=== PATIENT | male | born 1995 | race Two or more races ===

== ENCOUNTER 2017-11-03 16:56 | Emergency (ER) | payer MEDICAID ==
--- NOTE | 2017-11-03 17:39 | ED Physician Chart ---
ED Chief Complaint/HPI - Patient Information Date Seen:: 11/03/17 Time Seen:: 17:37 Chief Complaint:: Left wrist pain History of Present Illness:: 22 yo male had left wrist pain after fall from skate boarding, landed on his left elbow and wrist 2 days ago. Today, the pain became worse with limited and painful ROM. Allergies:: Allergies Allergy/AdvReac Type Severity Reaction Status Date / Time No Known Allergies Allergy Verified 07/31/16 21:47 ED Review of Systems - Review of Systems General/Constitutional: No fever, No chills Skin: No skin lesions Head: No headache Eyes: No pain ENT: No earache Neck: No neck pain Cardio Vascular: No chest pain Pulmonary: No SOB GI: No nausea, No vomiting Musculoskeletal: Bone or joint pain Psychiatric: No prior psych history Neurological: No focal symptoms ED Past Medical History - Past Medical History Past Medical History: No significant medical hx Social History: Smoker, Alcohol, Illicit Drug Use (marijuana) Surgical History: None Family Medical History - Family Member Mother History Unknown: Yes ED Physical Exam - Physical Examination General/Constitutional: Awake, Alert Head: Atraumatic Eyes: PERRL Skin: No skin lesions ENMT: Nasal exam nl Neck: No nuchal rigidity Respiratory: Clear to Auscultation Cardio Vascular: RRR, No murmur, gallop, rubs, NL S1 S2 GI: No tenderness/rebounding/guarding Other Extremities comments:: Left wrist swelling, tenderness, limited and painful ROM Neuro/Psych: No focal deficits ED Labs/Radiology/EKG Results - Radiology Results Results: left wrist X ray: possible nondisplaced fracture at distal radial metaphyseal region ED Assessment - Assessment General Assessment: Left wrist fracture Assessment/Comments:: Left wrist splint applied D/c instructions for splint care Follow up with PCP for ortho referral Splint Care: Splint applied (Left wrist splint) Post Procedure/Splint Exam: No Active Bleeding, Full Range of Motion (full ROM of all left 5 fingers), Neuro/Vascular Exam (goog blood refill on all finger tips) ED Septic Shock - . Is Septic Shock (SBP<90, OR Lactate>4 mmol\L) present?: No ED Reassessment (Disposition) - Reassessment Reassessment Condition:: Improved - Patient Disposition Discharge/Transfer:: Home ED Discharge Plan - Patient Disposition Admit/Discharge/Transfer: PT DISCHARGED HOME Condition at Disposition: Stable Instructions: Wrist Fracture, [id number]
--- NOTE | 2017-11-04 08:26 | Diagnostic Imaging Report ---
Left wrist 3 views Indication: Fall Comparison: none Findings: There is slight irregularity of the radial metaphyseal region along the radial styloid. There is slight incongruity of the radial articular surface. There is also subtle increased density involving the radial metadiaphyseal region. Indeterminate ulnar sided fracture fragment is noted. No dislocation. Minimal degenerative changes are noted. No significant focal soft tissue swelling. Impression: Slight irregularity of the distal radial metaphyseal region along the radial styloid. Findings may be due to growth plate closure, however, a nondisplaced fracture cannot be excluded. There is also slight incongruity of the articular surface of the distal radius which may be projectional, however, if there is continued concern for nondisplaced fracture, CT or MRI is recommended for further assessment. Subtle increased density along the radial metadiaphyseal region. A nondisplaced fracture in this region cannot be excluded. Again CT or MRI may be obtained for further assessment. Age-indeterminate fracture fragment of the ulnar styloid. In the setting of trauma, if clinical symptoms persist and there is continued concern for an occult fracture, follow up exams in 5-7 days is suggested.
== END 2017-11-03 19:03 | disposition home or self-care (01) ==
LOC: ER 16:56
DX: S62.102A Fracture of unspecified carpal bone, left wrist, initial encounter for closed fracture (principal); F17.200 Nicotine dependence, unspecified, uncomplicated; W00.0XXA Fall on same level due to ice and snow, initial encounter; Y93.51 Activity, roller skating (inline) and skateboarding; Y92.89 Other specified places as the place of occurrence of the external cause; Y99.8 Other external cause status
CPT/HCPCS: 73110-TC-LT; Z7502